=== PATIENT | female | born 1955 | race Caucasian/White ===

== ENCOUNTER 2021-08-23 07:13 | Day surgery (SDC) | payer OTHER, SELFPAY ==
[2021-08-19 12:04] VITALS: BMI 31.9
--- NOTE | 2021-08-22 09:53 | P.CONAN_ITS ---
Documented by User: Cris Diaz NP 08/22/21 09:53 HPI - Anesthesia Eval Consult details Narrative: 65yo F for Upper Endoscopy [facility] Past Medical History Medical History (Updated 08/19/21 @ 12:01 by Lou Bailey RN) Back pain Carotid stenosis Degenerative joint disease Elevated cholesterol GERD (gastroesophageal reflux disease) HTN (hypertension) Sleep apnea Surgical History Surgical History H/O colonoscopy History of Hx of cervical discectomy Hx of hysterectomy Social History Social History Patient Tobacco Use Status: Never used Tobacco Second Hand Smoke Exposure: No Use of substances other than those prescribed or required for medical reasons: No Are you DNR?: No Advance Directives: No Advance Directives Information Provided: Yes Advance Directives on File: No Meds Allergies Allergy/AdvReac Type Severity Reaction Status Date / Time ibuprofen [From Motrin] Allergy Unknown Verified 08/23/21 07:42 Home Medications Medication Instructions Recorded Confirmed Last Taken Type atorvastatin 10 mg tablet 1 tab PO DAILY 08/19/21 08/19/21 Unknown History cholecalciferol (vitamin D3) 25 25 mcg PO DAILY 08/19/21 08/19/21 Unknown History mcg (1,000 unit) capsule (Vitamin D3) dicyclomine 10 mg capsule 1 cap PO TID PRN 08/19/21 08/19/21 Unknown History lorazepam 1 mg tablet 1.5 tab PO DAILY PRN 08/19/21 08/19/21 Unknown History losartan 25 mg tablet 1 tab PO DAILY 08/19/21 08/19/21 Unknown History multivitamin 1 tab PO DAILY 08/19/21 08/19/21 Unknown History omeprazole 20 mg capsule,delayed 1 cap PO DAILY 08/19/21 08/19/21 Unknown History release Exam Exam Date and Time: August 22, 2021 0953 Height,Weight and Vital Signs: Height 5 ft 4 in Weight 84.368 kg Assessment and Plan Assessment Anesthesia Assessment: Chart Reviewed Documented by User: Romi De La O MD 08/23/21 07:43 [facility] Past Medical History Medical History (Updated 08/19/21 @ 12:01 by Lou Bailey RN) Back pain Carotid stenosis Degenerative joint disease Elevated cholesterol GERD (gastroesophageal reflux disease) HTN (hypertension) Sleep apnea Functional capacity: independent ambulation Family History Family history of problems with anesthesia: No Surgical History Surgical History H/O colonoscopy History of Hx of cervical discectomy Hx of hysterectomy History of Problems with Anesthesia: No Social History Social History Patient Tobacco Use Status: Never used Tobacco Second Hand Smoke Exposure: No Use of substances other than those prescribed or required for medical reasons: No Are you DNR?: No Advance Directives: No Advance Directives Information Provided: Yes Advance Directives on File: No Meds Allergies Allergy/AdvReac Type Severity Reaction Status Date / Time ibuprofen [From Motrin] Allergy Unknown Verified 08/23/21 07:42 Home Medications Medication Instructions Recorded Confirmed Last Taken Type atorvastatin 10 mg tablet 1 tab PO DAILY 08/19/21 08/19/21 Unknown History cholecalciferol (vitamin D3) 25 25 mcg PO DAILY 08/19/21 08/19/21 Unknown History mcg (1,000 unit) capsule (Vitamin D3) dicyclomine 10 mg capsule 1 cap PO TID PRN 08/19/21 08/19/21 Unknown History lorazepam 1 mg tablet 1.5 tab PO DAILY PRN 08/19/21 08/19/21 Unknown History losartan 25 mg tablet 1 tab PO DAILY 08/19/21 08/19/21 Unknown History multivitamin 1 tab PO DAILY 08/19/21 08/19/21 Unknown History omeprazole 20 mg capsule,delayed 1 cap PO DAILY 08/19/21 08/19/21 Unknown History release Exam Airway Mallampati Class: II TM Dist: >3cm Neck ROM: Full Heart: RRR Lungs: CTA Assessment and Plan Final Anesthetic Review Family History of Problems with Anesthesia: No History of Problems with Anesthesia: No ASA Class: II Final Preanesthetic Review: No Changes in Pt Med Stat, Meds/Allgs Chart Reviewed, Consent Obtained/Reviewed and Anes Risks/Benef Reviewed Patient Risk: Low Procedure Risk: Low Anesthetic Plan Anesthetic Plan: MAC: Disposition: Standard PACU
[2021-08-23 07:33] VITALS: BP 139/67; PULSE 78; RESP 16; TEMP 36.4; O2SAT 97
[2021-08-23] MEDS: Lactated Ringers 1,000 ML 100 ML IVCONT (07:42)
--- NOTE | 2021-08-23 08:13 | MHC.SHP ---
Pre-Procedural Eval Section A Date of Service: 08/23/21 Section B Chief Complaint: reflux Details of Present Illness: see h&p no changes Relevant Family History (Specify if Yes): No Relevant Social History: None Present Medications: see Short Stay Collaborative assessment Medical History: No relevant PMH History of Previous Operations: No relevant previous surgery Allergies: Allergies Allergy/AdvReac Type Severity Reaction Status Date / Time ibuprofen [From Motrin] Allergy Unknown Verified 08/23/21 07:42 Review of Systems Sugical H&P ROS: Negative: Constitution, Cardiovascular, Respiratory, Neurological, Psychiatric, Hem-Onc, Allergic/Immunologic, Gastrointestinal, Genitourinary, Musculoskeletal, Integumentary, Endocrine and Eyes/Ears/Nose/Throat Exam Surgical H&P Exam: Normal: HEENT, Normal: Heart, Normal: Lungs, Normal: Extremities, Normal: Abdomen, Normal: Skin and Normal: Neurological Plan Diagnosis/Plan: Unchanged I have reviewed the history and physical and performed a pertinent physical examination on my patient. No changes have occurred unless specified.
[2021-08-23 08:40] VITALS: BP 118/60; PULSE 86; RESP 16; TEMP 36.5; O2SAT 99
--- NOTE | 2021-08-23 08:46 | P.BOP_ITS ---
Brief Operative Note Date of Service: 08/23/21 Pre-op diagnosis: gerd Post-op diagnosis: same Procedure: egd Surgeon: Jesse Roach Anesthesia: MAC Was an Nailing Machine Operator Automatic used for this Procedure?: No Estimated blood loss (mL): 2 Pathology: other (bxs antrum and egj) Condition: stable Disposition: PACU
[2021-08-23 08:55] VITALS: BP 119/71; PULSE 75; RESP 16; O2SAT 98
[2021-08-23 09:10] VITALS: BP 137/74; PULSE 70; RESP 16; O2SAT 98
[2021-08-23 09:21] VITALS: PULSE 71; RESP 16; O2SAT 100
--- NOTE | 2021-08-23 10:33 | HO.POSTANES ---
Post Anesthesia Evaluation Post Anesthesia Evaluation Vital Signs: Vital Signs Temp Pulse Resp BP Pulse Ox 08/23/21 09:21 71 16 100 08/23/21 09:10 70 16 137/74 98 08/23/21 08:55 75 16 119/71 98 08/23/21 08:40 97.7 F 86 16 118/60 99 08/23/21 07:33 97.6 F 78 16 139/67 97 Anesthesia: Monitored Mental Status: Awake Pain Control: Satisfactory Nausea/Vomiting: None Hydration: Adequate Anesthesia-Related Issues: No Anes. Related Issues
--- NOTE | 2021-08-23 12:58 | OP_ITS ---
SURGEON: Jesse Roach MD INDICATIONS: Gastroesophageal reflux disease and Hemoccult-positive stools. PREOPERATIVE DIAGNOSIS: POSTOPERATIVE DIAGNOSIS: PROCEDURE PERFORMED: Upper endoscopy with biopsy. ESTIMATED BLOOD LOSS: COMPLICATIONS: ANESTHESIA: ASSISTANTS: SPECIMENS: MEDICATIONS: Monitored anesthesia care. DESCRIPTION OF PROCEDURE: History and physical were performed. The risks and benefits of the procedure were explained to the patient. Informed consent was obtained. The patient was placed in the left lateral decubitus position. The Olympus video gastroscope was introduced into the esophagus, stomach, and duodenum. Examination was performed. The scope was removed. She tolerated the procedure well and was taken to recovery area in stable condition. FINDINGS: Esophagus: The esophagus was normal. There was no esophagitis. Biopsies were obtained from the EG junction. There was a small sliding hiatal hernia. Stomach: The stomach showed no evidence of masses, ulcers, or polyps. Antral biopsies were obtained to evaluate for H pylori. Duodenum: The bulb and second portion were normal. IMPRESSION: Gastroesophageal reflux disease. RECOMMENDATION: Follow up the biopsy results. MD DEANN Guerrier/MODL / [id number]
== END 2021-08-23 10:00 | disposition home or self-care (01) ==
PROVIDERS: PCP Internal Medicine; Visit Provider Internal Medicine Gastroenterology
PROC: 0DJ08ZZ Inspection of Upper Intestinal Tract, Via Natural or Artificial Opening Endoscopic (ICD-10-PCS; CPT 43235; principal; 2021-08-23 08:20)
DX: K21.9 Gastro-esophageal reflux disease without esophagitis (principal); R19.5 Other fecal abnormalities; K44.9 Diaphragmatic hernia without obstruction or gangrene; K58.2 Mixed irritable bowel syndrome; I10 Essential (primary) hypertension; E78.5 Hyperlipidemia, unspecified; Z79.899 Other long term (current) drug therapy; Z86.010 Personal history of colon polyps
CPT/HCPCS: 43239; 88305; 88342

== ENCOUNTER 2022-09-05 06:12 | Day surgery (SDC) | payer OTHER, SELFPAY ==
--- NOTE | 2022-09-04 09:47 | HO.ANESPROP2 ---
Documented by User: Cris Diaz NP 09/04/22 09:47 HPI - Anesthesia Eval Consult details Narrative: 66yo F for Colonoscopy s/p EGD 08/2021 with [facility] Past Medical History Medical History (Updated 08/19/21 @ 12:01 by Lou Bailey RN) Back pain Carotid stenosis Degenerative joint disease Elevated cholesterol GERD (gastroesophageal reflux disease) HTN (hypertension) Sleep apnea Family History Family history of problems with anesthesia: No Surgical History Surgical History H/O colonoscopy History of Hx of cervical discectomy Hx of hysterectomy History of Problems with Anesthesia: No Social History Social History Patient Tobacco Use Status: Never used Tobacco Second Hand Smoke Exposure: No Use of substances other than those prescribed or required for medical reasons: No Are you DNR?: No Advance Directives: No Advance Directives Information Provided: Yes Recently lost weight without trying: No Nutrition Risks: No Nutritional Risk Meds Allergies Allergy/AdvReac Type Severity Reaction Status Date / Time celecoxib [From Celebrex] Allergy Palpitation Verified 09/05/22 06:27 s ibuprofen [From Motrin] Allergy Palpitation Verified 08/23/21 08:19 s Home Medications Medication Instructions Recorded Confirmed Last Taken Type atorvastatin 10 mg tablet 1 tab PO DAILY 08/19/21 08/19/21 Unknown History cholecalciferol (vitamin D3) 25 25 mcg PO DAILY 08/19/21 08/19/21 Unknown History mcg (1,000 unit) capsule (Vitamin D3) dicyclomine 10 mg capsule 1 cap PO TID PRN Gastrointestinal 08/19/21 08/19/21 Unknown History Spasms Or Cramping lorazepam 1 mg tablet 1.5 tab PO DAILY PRN anxiety 08/19/21 08/19/21 Unknown History losartan 25 mg tablet 1 tab PO DAILY 08/19/21 08/19/21 Unknown History multivitamin 1 tab PO DAILY 08/19/21 08/19/21 Unknown History omeprazole 20 mg capsule,delayed 1 cap PO DAILY 08/19/21 08/19/21 Unknown History release Exam Exam Date and Time: September 04, 2022 0947 Assessment and Plan Assessment Anesthesia Assessment: Chart Reviewed Final Anesthetic Review Family History of Problems with Anesthesia: No History of Problems with Anesthesia: No Documented by User: Le Mayfield MD 09/05/22 07:42 [facility] Past Medical History Medical History (Updated 08/19/21 @ 12:01 by Lou Bailey RN) Back pain Carotid stenosis Degenerative joint disease Elevated cholesterol GERD (gastroesophageal reflux disease) HTN (hypertension) Sleep apnea Surgical History Surgical History H/O colonoscopy History of Hx of cervical discectomy Hx of hysterectomy Social History Social History Patient Tobacco Use Status: Never used Tobacco Second Hand Smoke Exposure: No Use of substances other than those prescribed or required for medical reasons: No Are you DNR?: No Advance Directives: No Advance Directives Information Provided: Yes Recently lost weight without trying: No Nutrition Risks: No Nutritional Risk Meds Allergies Allergy/AdvReac Type Severity Reaction Status Date / Time celecoxib [From Celebrex] Allergy Palpitation Verified 09/05/22 06:27 s ibuprofen [From Motrin] Allergy Palpitation Verified 08/23/21 08:19 s Home Medications Medication Instructions Recorded Confirmed Last Taken Type atorvastatin 10 mg tablet 1 tab PO DAILY 08/19/21 08/19/21 Unknown History cholecalciferol (vitamin D3) 25 25 mcg PO DAILY 08/19/21 08/19/21 Unknown History mcg (1,000 unit) capsule (Vitamin D3) dicyclomine 10 mg capsule 1 cap PO TID PRN Gastrointestinal 08/19/21 08/19/21 Unknown History Spasms Or Cramping lorazepam 1 mg tablet 1.5 tab PO DAILY PRN anxiety 08/19/21 08/19/21 Unknown History losartan 25 mg tablet 1 tab PO DAILY 08/19/21 08/19/21 Unknown History multivitamin 1 tab PO DAILY 08/19/21 08/19/21 Unknown History omeprazole 20 mg capsule,delayed 1 cap PO DAILY 08/19/21 08/19/21 Unknown History release Exam Airway Mallampati Class: II TM Dist: >3cm Neck ROM: Full Heart: rrr Lungs: cta Assessment and Plan Assessment Anesthesia Assessment: Anesthesia Plan Discussed Final Anesthetic Review NPO: Yes ASA Class: II Final Preanesthetic Review: No Changes in Pt Med Stat, Meds/Allgs Chart Reviewed, Consent Obtained/Reviewed and Anes Risks/Benef Reviewed Patient Risk: Low Procedure Risk: Low Anesthetic Plan Anesthetic Plan: MAC: Disposition: Standard PACU
[2022-09-05 06:28] VITALS: BMI 27.4
[2022-09-05 06:33] VITALS: BP 176/83; PULSE 72; RESP 16; TEMP 36.4; O2SAT 95
[2022-09-05] MEDS: Lactated Ringers 1,000 ML 100 ML IVCONT (06:45)
--- NOTE | 2022-09-05 07:25 | MHC.SHP ---
Pre-Procedural Eval Section A Date of Service: 09/05/22 Section B Chief Complaint: Generalized abdominal pain,Abnormal findings on di Details of Present Illness: see H&P no changes Relevant Family History (Specify if Yes): No Relevant Social History: None Present Medications: see Short Stay Collaborative assessment Medical History: No relevant PMH Allergies: Allergies Allergy/AdvReac Type Severity Reaction Status Date / Time celecoxib [From Celebrex] Allergy Palpitation Verified 09/05/22 06:27 s ibuprofen [From Motrin] Allergy Palpitation Verified 08/23/21 08:19 s Review of Systems Sugical H&P ROS: Negative: Constitution, Cardiovascular, Respiratory, Neurological, Psychiatric, Hem-Onc, Allergic/Immunologic, Gastrointestinal, Genitourinary, Musculoskeletal, Integumentary, Endocrine and Eyes/Ears/Nose/Throat Exam Surgical H&P Exam: Normal: HEENT, Normal: Heart, Normal: Lungs, Normal: Extremities, Normal: Abdomen, Normal: Skin and Normal: Neurological Plan Diagnosis/Plan: Unchanged I have reviewed the history and physical and performed a pertinent physical examination on my patient. No changes have occurred unless specified. Time Spent With Patient Time: Total time managing care of this patient today ____ minutes.
[2022-09-05 08:06] VITALS: BP 139/75; PULSE 69; RESP 16; TEMP 36.6; O2SAT 100
--- NOTE | 2022-09-05 08:11 | PM.OP ---
Brief Operative Note Date of Service: 09/05/22 Pre-op diagnosis: abnl ct Post-op diagnosis: same Procedure: colonoscopy Surgeon: Jesse Roach Anesthesia: MAC Was an Underground Foreman used for this Procedure?: No Estimated blood loss (mL): 2 Pathology: other Condition: stable Disposition: PACU
--- NOTE | 2022-09-05 09:25 | OP_ITS ---
DATE OF SERVICE: 09/05/2022 SURGEON: Jesse Roach MD INDICATIONS: Abnormal CT scan of the colon and personal history of colon polyps. PREOPERATIVE DIAGNOSIS: POSTOPERATIVE DIAGNOSIS: PROCEDURE PERFORMED: Colonoscopy to the terminal ileum. ESTIMATED BLOOD LOSS: COMPLICATIONS: ANESTHESIA: Monitored anesthesia care. ASSISTANTS: SPECIMENS: DESCRIPTION OF PROCEDURE: History and physical was performed the risks and benefits of the procedure were explained to the patient, and informed consent was obtained. The patient was placed in the left lateral decubitus position. A digital rectal exam was performed and was found to be normal. The Olympus pediatric video colonoscope was introduced into the rectum and advanced to the cecum without difficulty. The cecum was identified by transillumination, palpation, and identification of the ileocecal valve. Examination was performed. The scope was removed. She tolerated the procedure well and was returned to the recovery area in stable condition. FINDINGS: The terminal ileum was examined briefly and limited examination was within normal limits. The visualized colonic mucosa was normal. The quality of the prep was good. There was some liquid stool and some undigested food. This was minimal and was suctioned as best possible. No polyps were identified. The mucosa appeared normal except in the rectum where there was some mild nonspecific erythema, possibly related to the prep. There was no evidence of acute colitis or chronic colitis. Biopsies were obtained from the sigmoid and the rectum. Retroflexed examination showed some hypertrophic anal papillae and small internal hemorrhoids. IMPRESSION: Normal colonoscopy. RECOMMENDATION: 1. Follow up the biopsy results. 2. Repeat colonoscopy is recommended in 10 years for average risk individuals. MD DEANN Guerrier/ZAIN / [id number]
== END 2022-09-05 08:55 | disposition home or self-care (01) ==
PROVIDERS: PCP Internal Medicine; Visit Provider Internal Medicine Gastroenterology
PROC: 0DJD8ZZ Inspection of Lower Intestinal Tract, Via Natural or Artificial Opening Endoscopic (ICD-10-PCS; CPT 45378; principal; 2022-09-05 07:30)
DX: R10.84 Generalized abdominal pain (principal); Z86.010 Personal history of colon polyps; K62.89 Other specified diseases of anus and rectum; K64.8 Other hemorrhoids; K21.9 Gastro-esophageal reflux disease without esophagitis; K22.70 Barrett's esophagus without dysplasia; I65.29 Occlusion and stenosis of unspecified carotid artery; I10 Essential (primary) hypertension; E78.5 Hyperlipidemia, unspecified; G47.33 Obstructive sleep apnea (adult) (pediatric); Z79.899 Other long term (current) drug therapy; Z88.8 Allergy status to other drugs, medicaments and biological substances; Z87.891 Personal history of nicotine dependence
CPT/HCPCS: 45380; 88305

== ENCOUNTER 2023-08-25 09:40 | Day surgery (SDC) | payer OTHER, SELFPAY ==
--- NOTE | 2023-08-24 08:44 | P.CONAN_ITS ---
Documented by User: Cris Diaz NP 08/24/23 08:45 HPI - Anesthesia Eval Consult details Narrative: 67yo F for Upper Endoscopy [facility] Past Medical History Medical History (Updated 08/19/21 @ 12:01 by Lou Bailey RN) Carotid stenosis Degenerative joint disease Sleep apnea Back pain Elevated cholesterol HTN (hypertension) GERD (gastroesophageal reflux disease) Family History Family history of problems with anesthesia: No Surgical History Surgical History (Updated 08/25/23 @ 10:06 by Fatoumata Cristobal RN) Hx of esophagogastroduodenoscopy Hx of cervical discectomy Hx of hysterectomy History of H/O colonoscopy History of Problems with Anesthesia: No Social History Social History Patient Tobacco Use Status: Never used Tobacco Second Hand Smoke Exposure: No Are you DNR?: No Advance Directives: No Advance Directives Information Provided: Yes Meds Allergies Allergy/AdvReac Type Severity Reaction Status Date / Time celecoxib [From Celebrex] Allergy Palpitation Verified 09/05/22 06:27 s ibuprofen [From Motrin] Allergy Palpitation Verified 08/23/21 08:19 s Home Medications Medication Instructions Recorded Confirmed Last Taken Type atorvastatin 10 mg tablet 1 tab PO DAILY 08/19/21 08/19/21 Unknown History cholecalciferol (vitamin D3) 25 25 mcg PO DAILY 08/19/21 08/19/21 Unknown History mcg (1,000 unit) capsule (Vitamin D3) dicyclomine 10 mg capsule 1 cap PO TID PRN Gastrointestinal 08/19/21 08/19/21 Unknown History Spasms Or Cramping lorazepam 1 mg tablet 1.5 tab PO DAILY PRN anxiety 08/19/21 08/19/21 Unknown History losartan 25 mg tablet 1 tab PO DAILY 08/19/21 08/19/21 Unknown History multivitamin 1 tab PO DAILY 08/19/21 08/19/21 Unknown History omeprazole 20 mg capsule,delayed 1 cap PO DAILY 08/19/21 08/19/21 08/25/23 History release Assessment and Plan Assessment Anesthesia Assessment: Chart Reviewed Final Anesthetic Review Family History of Problems with Anesthesia: No History of Problems with Anesthesia: No Documented by User: Sami Miranda MD 08/25/23 11:18 [facility] Past Medical History Medical History (Updated 08/19/21 @ 12:01 by Lou Bailey, PEDRITO) Carotid stenosis Degenerative joint disease Sleep apnea Back pain Elevated cholesterol HTN (hypertension) GERD (gastroesophageal reflux disease) Surgical History Surgical History (Updated 08/25/23 @ 10:06 by Fatoumata Cristobal, PEDRITO) Hx of esophagogastroduodenoscopy Hx of cervical discectomy Hx of hysterectomy History of H/O colonoscopy Social History Social History Patient Tobacco Use Status: Never used Tobacco Second Hand Smoke Exposure: No Are you DNR?: No Advance Directives: No Advance Directives Information Provided: Yes Meds Allergies Allergy/AdvReac Type Severity Reaction Status Date / Time celecoxib [From Celebrex] Allergy Palpitation Verified 09/05/22 06:27 s ibuprofen [From Motrin] Allergy Palpitation Verified 08/23/21 08:19 s Home Medications Medication Instructions Recorded Confirmed Last Taken Type atorvastatin 10 mg tablet 1 tab PO DAILY 08/19/21 08/19/21 Unknown History cholecalciferol (vitamin D3) 25 25 mcg PO DAILY 08/19/21 08/19/21 Unknown History mcg (1,000 unit) capsule (Vitamin D3) dicyclomine 10 mg capsule 1 cap PO TID PRN Gastrointestinal 08/19/21 08/19/21 Unknown History Spasms Or Cramping lorazepam 1 mg tablet 1.5 tab PO DAILY PRN anxiety 08/19/21 08/19/21 Unknown History losartan 25 mg tablet 1 tab PO DAILY 08/19/21 08/19/21 Unknown History multivitamin 1 tab PO DAILY 08/19/21 08/19/21 Unknown History omeprazole 20 mg capsule,delayed 1 cap PO DAILY 08/19/21 08/19/21 08/25/23 History release Exam Airway Mallampati Class: II TM Dist: >3cm Neck ROM: Full Loose/Missing/Broken Teeth: No Assessment and Plan Assessment Anesthesia Assessment: Anesthesia Plan Discussed Final Anesthetic Review NPO: Yes ASA Class: II Final Preanesthetic Review: No Changes in Pt Med Stat, Meds/Allgs Chart Reviewed, Consent Obtained/Reviewed and Anes Risks/Benef Reviewed Patient Risk: Low Procedure Risk: Low Anesthetic Plan Anesthetic Plan: MAC: Disposition: Standard PACU
[2023-08-25 10:00] VITALS: BP 187/74; PULSE 72; RESP 18; TEMP 36.3; O2SAT 99; BMI 30.6
[2023-08-25] MEDS: Lactated Ringers 1,000 ML 100 ML IVCONT (10:14)
--- NOTE | 2023-08-25 11:18 | P.HPSUR_ITS ---
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 Details of Present Illness: see H&P no chagnes Relevant Family History (Specify if Yes): No Relevant Social History: None Present Medications: see Short Stay Collaborative assessment Medical History: No relevant PMH Allergies: Allergies Allergy/AdvReac Type Severity Reaction Status Date / Time celecoxib [From Celebrex] Allergy Palpitation Verified 09/05/22 06:27 s ibuprofen [From Motrin] Allergy Palpitation Verified 08/23/21 08:19 s Review of Systems Sugical H&P ROS: Negative: Constitution, Cardiovascular, Respiratory, Neurological, Psychiatric, Hem-Onc, Allergic/Immunologic, Gastrointestinal, Genitourinary, Musculoskeletal, Integumentary, Endocrine and Eyes /Ears/Nose/Throat Exam Surgical H&P Exam: Normal: HEENT, Normal: Heart, Normal: Lungs, Normal: Extremities, Normal: Abdomen, Normal: Skin and Normal: Neurological Plan Diagnosis/Plan: Unchanged I have reviewed the history and physical and performed a pertinent physical examination on my patient. No changes have occurred unless specified. Time Spent With Patient Time: Total time managing care of this patient today ____ minutes.
[2023-08-25 11:46] VITALS: BP 158/86; PULSE 83; RESP 18; TEMP 36.7; O2SAT 99
[2023-08-25 12:01] VITALS: BP 155/69; PULSE 68; RESP 18; TEMP 36.6; O2SAT 98
--- NOTE | 2023-08-25 12:13 | OP_ITS ---
DATE OF SERVICE: 08/25/2023 SURGEON: Jesse Roach MD INDICATIONS: Quintanilla esophagus. PREOPERATIVE DIAGNOSIS: POSTOPERATIVE DIAGNOSIS: PROCEDURE PERFORMED: Upper endoscopy with biopsy. ESTIMATED BLOOD LOSS: COMPLICATIONS: ANESTHESIA: Monitored anesthesia care. ASSISTANTS: SPECIMENS: DESCRIPTION OF PROCEDURE: A history and physical was performed. The risks and benefits of the procedure were explained to the patient. Informed consent was obtained. The patient was placed in the left lateral decubitus position. The Olympus video gastroscope was introduced into the esophagus, stomach, and duodenum. Examination was performed. The scope was removed. She tolerated the procedure well and was returned to the recovery area in stable condition. FINDINGS: Esophagus: The esophagus showed an irregular EG junction. This was biopsied. There was no esophagitis and no raised areas or ulcerated areas. Stomach: The stomach showed no evidence of masses or ulcers. Multiple benign-appearing gastric polyps were identified in the body and fundus consistent with fundic gland polyps. Duodenum: The bulb and 2nd portion were normal. IMPRESSION: Quintanilla esophagus. RECOMMENDATION: Follow up the biopsy results. MD DEANN Guerrier/ZAIN / [id number]
== END 2023-08-25 13:15 | disposition home or self-care (01) ==
PROVIDERS: PCP Internal Medicine; Visit Provider Internal Medicine Gastroenterology
PROC: 0DJ08ZZ Inspection of Upper Intestinal Tract, Via Natural or Artificial Opening Endoscopic (ICD-10-PCS; CPT 43235; principal; 2023-08-25 12:40)
DX: K22.70 Barrett's esophagus without dysplasia (principal); K21.9 Gastro-esophageal reflux disease without esophagitis; K31.7 Polyp of stomach and duodenum; I10 Essential (primary) hypertension; G47.33 Obstructive sleep apnea (adult) (pediatric); Z79.899 Other long term (current) drug therapy
CPT/HCPCS: 43239; 88305; 88313; J2704